=== PATIENT | female | born 1985 | race Native Hawaiian/Other Pacific Islander ===

== ENCOUNTER 2022-09-22 18:16 | Emergency (ER) | payer BC, SELFPAY ==
[2022-09-22 18:23] VITALS: BP 132/76; PULSE 99; RESP 16; TEMP 37.3; O2SAT 95; BMI 33.4
--- NOTE | 2022-09-22 19:09 | ED_ITS ---
HPI - General Adult General Date Seen: 09/22/22 Chief complaint: Cough Stated complaint: Covid+ Wants Medication Time Seen by Provider: 09/22/22 18:24 Source: patient Mode of arrival: ambulatory Limitations: no limitations History of Present Illness HPI narrative: Patient is a 36-year-old generally healthy woman who became ill yesterday with fever, cough, headache and body aches. Tested positive for COVID about half an hour ago. She says her mom insisted that she come in and get a prescription for Paxlovid. She does not have complaints of significant shortness of breath, wheezing, no GI symptoms, no chest pain. She does smoke couple of cigarettes a day. Does not take any medications. Denies significant alcohol use. Denies any other medical history. She is not vaccinated for COVID. Related Data Previous Rx's Medication Instructions Recorded nirmatrelvir 300 mg (150 mg See Rx Instructions PO .COMPLEX 09/22/22 x2)-ritonavir 100 mg tablet,dose #30 ea pack(EUA) (Paxlovid) Allergies Allergy/AdvReac Type Severity Reaction Status Date / Time No Known Drug Allergies Allergy Verified 09/22/22 18:27 Review of Systems Status of ROS: Reports: 6 or more systems reviewed and unremarkable except as noted in History and below PFSH PFS Social History Smoking Status: Heavy tobacco smoker What tobacco products do you use: cigarettes Smoking packs per day: 0.25 Smoking cigarettes per day: 5.0 Years smoked: 10 Smoking pack-years: 2.50 Do you use any of these nicotine containing products: None Second hand tobacco smoke exposure: No How often do you have a drink containing alcohol: never AUDIT-C Alcohol total score: 0 Non-prescribed substance use: denies use service: No Exam Narrative: Exam Narrative: Vital signs as noted above. In general, an alert, well-appearing patient. Head: Normocephalic, atraumatic. Eyes: Pupils are equal reactive. Extraocular movements are full. Conjunctivae are normal. ENT: Mucous membranes are moist. Throat is normal. Neck: Supple without lymphadenopathy. Heart: Regular rate and rhythm. No murmur or rub. Lungs: Clear bilaterally. No increased work of breathing, crackles or wheezes. Abdomen: Soft and nontender. No organomegaly. Extremities: Well perfused. No edema. No calf tenderness. Pulses intact. Neurologic: Patient is alert and oriented to person and place. Speech is fluent. Face is symmetric. Moves all extremities equally. Affect: Normal. Skin: Warm and dry. Well perfused. Const: Vital Signs, click to edit/add: Vital Signs - 24 hr 09/22/22 18:23 Temperature 99.2 F Pulse Rate [Pulse Oximeter] 99 Respiratory Rate 16 Blood Pressure [Ri ght Upper Arm] 132/76 Pulse Oximetry 95 Oxygen Delivery Me thod Room Air Documenting provider has reviewed patient's vital signs: yes Course Course Hospital Course: We discussed the potential benefits for Paxlovid, which are probably limited given her age in general good health. However, she is not vaccinated for COVID and does smoke, so we did decide to start Paxlovid. Discussed that this generally does not result in the prompt resolution of symptoms, and she may continue to feel ill for the next 10-14 days. For acute worsening, severe shortness of breath, return at any time to the ER. Primary care follow-up for any ongoing concerns. Vital Signs Vital signs: Initial Vital Signs Temperature 99.2 F 09/22/22 18:23 Temperature Source Temporal Artery Scan 09/22/22 18:23 Pulse Rate 99 09/22/22 18:23 Respiratory Rate 16 09/22/22 18:23 Blood Pressure 132/76 09/22/22 18:23 Blood Pressure Mean 94 09/22/22 18:23 Blood Pressure Position Supine 09/22/22 18:23 Pulse Oximetry 95 09/22/22 18:23 Oxygen Delivery Method Room Air 09/22/22 18:23 Vital Signs Temperature 99.2 F 09/22/22 18:23 Pulse Rate 99 09/22/22 18:23 Respiratory Rate 16 09/22/22 18:23 Blood Pressure 132/76 09/22/22 18:23 Pulse Oximetry 95 09/22/22 18:23 Oxygen Delivery Method Room Air 09/22/22 18:23 Temperature 99.2 F 09/22/22 18:23 Pulse Rate 99 09/22/22 18:23 Respiratory Rate 16 09/22/22 18:23 Blood Pressure 132/76 09/22/22 18:23 Pulse Oximetry 95 09/22/22 18:23 Oxygen Delivery Method Room Air 09/22/22 18:23 Discharge Plan Discharge Clinical Impression: COVID-19 Patient Disposition: Home, Self-Care Condition: Stable Instructions: COVID-19 (Coronavirus Disease 2019) (ED) Additional Instructions: Ibuprofen or Tylenol as needed for fever. Paxlovid as prescribed. Return at any time for acute worsening respiratory symptoms. Primary care follow-up for ongoing concerns. Activity Level: No Restrictions Discharge Diet: Regular Prescriptions: New Paxlovid (EUA) 300 mg (150 mg x 2)-100 mg tablets,dose pack See Rx Instructions .ROUTE .COMPLEX Qty: 30 0RF Rx Instructions: take TWO 150 mg tablets of nirmatrelvir with ONE 100 mg tablet of ritonavir twice daily for 5 days Follow Up/Referrals: Addie Mckeon MD [Primary Care Provider] - Stand Alone Forms: [employer] Info Instructions
== END 2022-09-22 19:05 | disposition home or self-care (01) ==
PROVIDERS: Emergency Provider Emergency Medicine; PCP Family Medicine
DX: U07.1 COVID-19 (principal)
CPT/HCPCS: 99283; 99284

== ENCOUNTER 2023-08-13 12:59 | Emergency (ER) | payer BC, SELFPAY ==
[2023-08-13 13:04] VITALS: BP 138/85; PULSE 85; RESP 18; TEMP 37.1; O2SAT 98; BMI 31.9
--- NOTE | 2023-08-13 13:23 | ED.GENADULT ---
HPI - General Adult General Chief complaint: Laceration/Wound Stated complaint: L thumb laceration Time Seen by Provider: 08/13/23 13:03 Source: patient Mode of arrival: ambulatory Limitations: no limitations History of Present Illness HPI narrative: 37-year-old female coming in today complaining of a laceration to the left thumb. She was using a snuff box finisher to cut some screens when it slipped and cut her thumb. She denies any other injury. Tetanus shot was updated in 2020. Related Data Previous Rx's Medication Instructions Recorded nirmatrelvir 300 mg (150 mg See Rx Instructions PO .COMPLEX 09/22/22 x2)-ritonavir 100 mg tablet,dose #30 ea pack (Paxlovid) Allergies Allergy/AdvReac Type Severity Reaction Status Date / Time No Known Drug Allergies Allergy Verified 09/22/22 18:27 Review of Systems Status of ROS: Reports: 6 or more systems reviewed and unremarkable except as noted in History and below PFSH PFS Social History Smoking Status: Former smoker Do you use any of these nicotine containing products: None Second hand tobacco smoke exposure: No How often do you have a drink containing alcohol: never AUDIT-C Alcohol total score: 0 Non-prescribed substance use: denies use service: No Exam Narrative: Exam Narrative: Well-nourished well-developed patient in no acute distress. Alert and oriented. Answers questions appropriately. Mood and affect are appropriate. Thoughts are goal oriented and rational. No tangential or magical thinking noted. Patient speaks in full sentences without needing to catch her breath. HEENT: Normocephalic atraumatic. Pupils are equally round reactive to light. Extraocular muscles are intact. Conjunctivae are moist without any icterus noted. Moist mucous membranes. Posterior pharynx is normal. Neck is soft without any lymphadenopathy or thyromegaly. No masses are appreciated. Skin: Well perfused without any obvious rashes. Extremities: Patient has an L-shaped laceration that penetrates the skin does not penetrate the subcutaneous tissue just proximal to the interphalangeal joint of the thumb on the dorsal surface. Const: Vital Signs, click to edit/add: Vital Signs - 24 hr 08/13/23 13:04 Temperature 98.8 F Pulse Rate [Pulse Oximeter] 85 Respiratory Rate 18 Blood Pressure [Ri ght Upper Arm] 138/85 Pulse Oximetry 98 Oxygen Delivery Me thod Room Air Course Course ED Course: Laceration was anesthetized with lidocaine. Wound was cleaned and explored. Three sutures with 4-0 Ethilon were placed without difficulty and good skin approximation. Vital Signs Vital signs: Initial Vital Signs Temperature 98.8 F 08/13/23 13:04 Temperature Source Temporal Artery Scan 08/13/23 13:04 Pulse Rate 85 08/13/23 13:04 Respiratory Rate 18 08/13/23 13:04 Blood Pressure 138/85 08/13/23 13:04 Blood Pressure Mean 102 08/13/23 13:04 Pulse Oximetry 98 08/13/23 13:04 Oxygen Delivery Method Room Air 08/13/23 13:04 Vital Signs Temperature 98.8 F 08/13/23 13:04 Pulse Rate 85 08/13/23 13:04 Respiratory Rate 18 08/13/23 13:04 Blood Pressure 138/85 08/13/23 13:04 Pulse Oximetry 98 08/13/23 13:04 Oxygen Delivery Method Room Air 08/13/23 13:04 Temperature 98.8 F 08/13/23 13:04 Pulse Rate 85 08/13/23 13:04 Respiratory Rate 18 08/13/23 13:04 Blood Pressure 138/85 08/13/23 13:04 Pulse Oximetry 98 08/13/23 13:04 Oxygen Delivery Method Room Air 08/13/23 13:04 Medical Decision Making MDM Narrative Medical decision making narrative: 29-year-old female with laceration to the thumb. Sutured in the ED today. We discussed wound hygiene, signs of infections, reasons for follow-up and suture removal. Discharge Plan Discharge Clinical Impression: Laceration Patient Disposition: Home, Self-Care Condition: Stable Additional Instructions: Keep wound clean and dry. Avoid soaking it for prolonged periods of time. Wear a glove over it if you are doing anything that would get your hands dirty. Watch for signs of infection which include redness of the area or purulent drainage. If this occurs follow-up in the ED or with your primary care provider right away. Sutures should be removed with your primary care provider in approximately 6-8 days. Prescriptions: No Action Paxlovid 300 mg (150 mg x 2)-100 mg tablets,dose pack See Rx Instructions .ROUTE .COMPLEX Qty: 30 0RF Rx Instructions: take TWO 150 mg tablets of nirmatrelvir with ONE 100 mg tablet of ritonavir twice daily for 5 days Follow Up/Referrals: Addie Mckeon MD [Primary Care Provider] - Stand Alone Forms: [employer] Info Instructions
== END 2023-08-13 13:35 | disposition home or self-care (01) ==
LOC: ED 13:32
PROVIDERS: Emergency Provider Family Medicine; PCP Family Medicine
DX: S61.012A Laceration without foreign body of left thumb without damage to nail, initial encounter (principal); W26.8XXA Contact with other sharp object(s), not elsewhere classified, initial encounter
CPT/HCPCS: 12001; 99283; 99284